=== PATIENT | male | born 1945 | race Caucasian/White ===

== ENCOUNTER → 2017-04-20 | Outpatient (CLI) | payer MEDICARE, OTHER ==
[~2017-04-20] MED LIST: CITALOPRAM HBR10 MG PO; FLOMAX0.4 M1 PO; NORCO1 TAB 10/3 PO
--- NOTE | ~2017-04-20 | TH ---
Unit #: [id number] #: [id number] Patient: SYDNIE REYNAGA [id number] [address] [address] [id number] O MR#: [id number] NAME: SYDNIE REYNAGA : 1945 SEX: M STUDY DATE/TIME: 04/20/2017 UNIT: [facility] ROOM: STUDY DESCRIPTION: Attending Physician: Eddie Diaz A.P.R.N. Referring Physician: Eddie Diaz A.P.R.N. Primary Care Physician: Eddie Diaz A.P.R.N. CARDIOLOGY REPORT EXAM Lexiscan Cardiolite stress test, nuclear portion. PROCEDURE Using technetium 99m labeled Cardiolite, rest and stress SPECT images were obtained. Multiple SPECT images were obtained in various views including horizontal and vertical long axis and short axis views of the left ventricle. Images were obtained by gated SPECT method. The patient was administered 10.78 mCi of Cardiolite at rest. The patient was administered 32.1 mCi of Cardiolite after Lexiscan infusion was completed. On the stress images, there is normal perfusion noted. The rest images show normal perfusion. Comparing rest and stress images, there is no stress-induced ischemia noted. The left ventricular ejection fraction is calculated to be 64%. There is no focal wall motion abnormality seen. CONCLUSION 1. No stress-induced ischemia noted. 2. The left ventricular ejection fraction is calculated to be 64%. 3. There is no focal wall motion abnormality seen. 4. The left ventricular size is small. 5. Normal Lexiscan Cardiolite stress test. 6. Technically limited study. Clinical correlation is requested. Dictated by... Nahid Pino TD: 04/20/2017 15:38 JOB #: [id number] Unit #: [id number] #: [id number] Patient: SYDNIE REYNAGA CARDIOLOGY REPORT Page 1 of 1 X Kay Montanez MD <ELECTRONICALLY SIGNED> 05/20/17 1429 CARDIOLOGY REPORT
--- NOTE | ~2017-04-20 | ST ---
Unit #: [id number] #: [id number] Patient: SYDNIE REYNAGA [id number] [facility]. [address] [address] [id number] O MR#: [id number] NAME: SYDNIE REYNAGA : 1945 SEX: M STUDY DATE/TIME: 04/20/2017 UNIT: [facility] ROOM: STUDY DESCRIPTION: Attending Physician: Eddie Diaz A.P.R.N. Referring Physician: Eddie Diaz A.P.R.N. Primary Care Physician: Eddie Diaz A.P.R.N. CARDIOLOGY REPORT EXAM Lexiscan Cardiolite stress test. FINDINGS Baseline EKG: Normal sinus rhythm with ventricular rate 67 beats per minute, left atrial abnormality, poor R-wave progression, nondiagnostic Q waves in inferolateral leads. PROCEDURE Lexiscan is a 4-minute test with Lexiscan being injected within the first minute followed by Cardiolite. EKG during the test showed some nonspecific ST-T wave abnormalities in inferior leads, otherwise unremarkable. Patient had no complaints of chest pain, palpitations, or dizziness. Had increased shortness of breath and fatigueness which resolved in recovery phase. Maximum heart rate response was 69 beats per minute with a maximum blood pressure response of 189/70 mmHg. EKG during the test had no significant ST-T wave abnormalities, some nonspecific ST-T wave abnormalities in inferior leads. Cardiolite was injected after Lexiscan within the first minute of the tests. Radionuclide tests pending. Please correlate with nuclear images. Dictated by... Melissa Deshpande A.P.R.N. for Nahid Pino TD: 04/20/2017 10:31 JOB #: [id number] CC: Eddie Diaz A.P.R.N. CARDIOLOGY REPORT Page 1 of 1 X Melissa Deshpande APRN CARDIOLOGY REPORT
== END | disposition home or self-care (01) ==
LOC: CNUC 08:03
DX: R06.02 Shortness of breath (principal); I10 Essential (primary) hypertension
CPT/HCPCS: 78452; 93017; A9500; J2785